=== PATIENT | female | born 1950 | race Caucasian/White ===

== ENCOUNTER 2022-05-18 09:08 | Day surgery (SDC) | payer MEDICARE, OTHER, SELFPAY ==
[2022-05-18] VITALS (14 sets, daily range): BP systolic 116–159; BP diastolic 65–92; PULSE 57–79; RESP 12–18; TEMP 36.2–36.8; O2SAT 95–98; BMI 30.6
[2022-05-18] MEDS: LACTATED RINGERS 1000 ML 1,000 ML 100 ML IV ×2 (09:30→12:16)
[2022-05-18] MEDS: SODIUM CHLORIDE 0.9 % (FLUSH) 10 ML SYRINGE IVF (09:55)
--- NOTE | 2022-05-18 10:00 | CRLHL7_ITS ---
For Patients: As a result of the Cures Act, medical imaging exams and procedure reports are released immediately into your electronic medical record. You may view this report before your referring provider. If you have questions, please contact your health care provider. Indication: OSTECTOMY Technique: One fluoroscopic image of left calcaneus. Fluoroscopic time 5.2 seconds. IMPRESSION: Fluoroscopic guidance for posterior calcaneal ostectomy. Dictated by Raymon Rollins MD @ 05/19/2022 8:32:21 AM (Electronically Signed)
[2022-05-18] MEDS: MIDAZOLAM HCL 1 MG/ML inj IVP (10:15)
[2022-05-18] MEDS: fentaNYL 100 MCG/2 ML inj IVP (10:15)
--- NOTE | 2022-05-18 11:06 | W.PM.NB ---
Nerve Block Nerve Block Time Seen by Provider: 10:15 Date Seen: 05/18/22 Type of block requested by surgeon for post-operative analgesia: popliteal Side: right Time out performed: Yes Verification of patient name: Yes Verification of date of : Yes Site marking: site marked Name of person performing procedure: Jamel Continuous monitoring Was continuous monitoring of O2 sat, B/P, ekg monitor tech, recorded every 15 minutes?: Yes Procedure Checklist: sterile prep, needles and gloves Ultrasound guided. Images saved: Yes Medications given in 5ml increments after negative aspiration: Ropivicaine %: 0.5 mL: 20 Needle gauge: 22 Patient tolerated procedure well: Yes Additional comments: Needle noted adjacent to nerve Block Charges Block Charge (with Pro Fee): Sciatic Nerve Use of Ultrasound Machine for Block: Yes- US Guidance/pain block
--- NOTE | 2022-05-18 11:18 | SUR.OPER ---
PATIENT QUESTIONS ANSWERED SATISFACTORILY PREOPERATIVELY.? PATIENT BROUGHT TO OR #1 PER CART.? Patient positioned prone on OR #1 bed after intubation. The perioperative?team supported arms bilaterally on arm boards.? Final approval of positioning by surgeon.
--- NOTE | 2022-05-18 12:18 | W.ANESCHARGE ---
Anesthesia Charges Start Date/Time Anesthesia Start Date: 05/18/22 Anesthesia Start Time: 10:25 Stop Date/Time Anesthesia Stop Date: 05/18/22 Anesthesia Stop Time: 12:20 Summary Emergency: No Extremes of Age: Over 70-CPT 61341
--- NOTE | 2022-05-18 12:28 | P.GSOP_ITS ---
Operative Note Date of procedure: 05/18/22 Type of Procedure: 1. calcaneal ostectomy with Achilles repair right 2. 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 The operative site was marked and the patient was brought to the operating room and placed on the operating table in supine position.? Care was taken to pad the patient's pressure points.?? Anesthesia had performed preoperative popliteal block. The patient was then intubated by anesthesia.?? The operative site was then prepped and draped in the usual sterile fashion.? A time-out was then performed. the right leg was exsanguinated and the thigh tourniquet was inflated to 250 mm Hg. A linear incisions made over the posterior aspect of the distal Achilles tendon and calcaneus. Incision was carried down through skin subcutaneous tissues. Paratenon was identified and opened in a linear fashion. A linear incision was then made through the Achilles tendon along its midline from proximal to distal. The tendon was then elevated off the posterior calcaneus and retracted medial and lateral. the large posterior superior bony tubercle was resected with a sagittal saw. A reciprocating rasp was used to remove excessive bone at the insertion and remodel medial and lateral aspects of the calcaneus. Wound was thoroughly irrigated normal sterile saline. C-arm images confirmed excellent resection of the bony prominences in the posterior heel. Achilles tendon was then debrided a scalpel excising enlarged abnormal tissue. A 4.75 mm SwiveLock anchor with FiberTape attached was placed using standard technique the proximal medial calcaneus and 2nd in the proximal lateral calcaneus. Medial anchor FiberTape was passed through the medial slip of the Achilles tendon and the tendon anchored down to bone. lateral anchor FiberTape was passed through the lateral slip of the Achilles tendon and the tendon anchored down to bone. two additional anchor holes were drilled and tapped distal to the repair site. One suture arm from each anchor was brought together and a 4.75 mm SwiveLock anchor buried them in the bone under appropriate tension on the medial aspect. The remaining 2 FiberTape were then brought together and anchored into the lateral aspect. Wound was irrigated with normal sterile saline. Paratenon was repaired with 4-0 Vicryl. Subcutaneous tissues reapproximated 4-0 Monocryl and skin closed with 4-0 Prolene. Range of motion of the ankle with the knee straight his reduced significantly less than 10?. We decided to proceed with a gastroc lengthening. 4 cm incision was made over the medial distal head of the gastroc muscle. Incision was carried down through skin subcutaneous tissues. The paratenon was identified and incised. the aponeurosis was identified and no neurovascular structures seen. ( gastroc aponeurosis was then transected and released in a Esteban type fashion leaving the soleal fibers intact. Dorsiflexion stress aloud an increase in range of motion to 10?. Wound was thoroughly irrigated normal sterile saline. Paratenon was closed with 4-0 Vicryl. Subcutaneous tissues reapp roximated 4-0 Vicryl. Skin closed with 4-0 Prolene. A well-padded below-knee plaster posterior splint was applied in gravity dorsiflexion. Tourniquet was released normal capillary fill time returned all digits. She was transferred from OR to PACU vital signs stable and vascular status intact the right lower extremity. The patient tolerated the procedure well. She is given both written and verbal postop instructions. She is nonweightbearing to the right lower extremity. She has follow-up appointment in 3 days. Findings: Complications: None apparent Implants: Arthrex 4.75 mm SwiveLock anchors x4 Anesthesia: GETA and regional Surgeon: Brandon Youngblood DPM Estimated blood loss (mL): 5 Condition: stable Disposition: PACU
--- NOTE | 2022-05-18 12:42 | W.ANESCHARGE ---
Anesthesia Charges Start Date/Time Anesthesia Start Date: 05/18/22 Anesthesia Start Time: 10:25 Stop Date/Time Anesthesia Stop Date: 05/18/22 Anesthesia Stop Time: 12:20 Summary Emergency: No Extremes of Age: Over 70-CPT 61157
--- NOTE | 2022-05-18 12:52 | SUR.PHASEI ---
Suction used per pt request to assist with clearing secretions.
--- NOTE | 2022-05-18 13:12 | SUR.PHASEII ---
Pt states she is having a lot of phlegm and requesting to use suction to get it out. Clear sputum scant amounts noted in tubing.
[2022-05-18] MEDS: ACETAMINOPHEN 500 MG TABLET 1000 MG PO (13:20)
--- NOTE | 2022-05-18 14:30 | SUR.PHASEII ---
PT here to go over crutch instructions.
--- NOTE | 2022-05-18 14:49 | SUR.PHASEII ---
Pt went down to PT to work on stairs. Back now at 1429 and will discharge home.
== END 2022-05-18 14:49 | disposition home or self-care (01) ==
PROVIDERS: PCP Family Medicine; Visit Provider Podiatrist
PROC: (CPT 28300; principal; 2022-05-18 10:00)
DX: M92.61 Juvenile osteochondrosis of tarsus, right ankle (principal); M21.861 Other specified acquired deformities of right lower leg; M79.671 Pain in right foot; G89.29 Other chronic pain
CPT/HCPCS: 28118; 27687; 01462; 01480; 64445; 73630; 76000; 76942; 97116; 97161; 99100; A4580; A9270; C1713; J0330; J1100; J2250; J2405; J2704; J2795; J3010; J7120; S0077